=== PATIENT | male | born 1940 | race Caucasian/White ===

== ENCOUNTER → 2024-01-11 | Emergency (ER) | payer MEDICARE, OTHER ==
[~2024-01-11] VITALS: Ht 170.2 cm; Wt 65.0 kg
[~2024-01-11] MED LIST: ASPIRIN REGIMEN81 MG PO; CIPRO250 MG PO; CIPRO500 MG PO; CRESTOR40 MG PO; FINASTERIDE5 MG PO; FLOMAX0.4 MG PO; HYDROCODON-ACE1 EA10 PO; LEVOTHYROXINE50 MC1 PO; LEVOTHYROXINE50 MCG PO; METOPROLOL SUCC50 MG PO; MULTI VITAMIN1 EACH PO; NORVASC5 MG PO; ONDANSETRON ODT8 MG PO; PYRIDIUM200 MG PO; TAMSULOSIN HCL0.4 MG PO; TRAMADOL HCL50 MG PO; VITAMIN D350 MC3 PO; ZESTORETIC 10-1 EACH PO
--- OUTSIDE RECORDS SUMMARY | 2024-01-11 22:45 | XMS ---
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 Ajit has no Care Guidelines for this patient. [place] VISIT COUNT (12 MO.) 3 [facility] T[facility] NOTE: Visits indicate total known visits. ED/C VISIT TRACKING (12 MO.) 01/11/2024 22:[address] [facility] [place] TYPE: Emergency COMPLAINT: - CATHETER ISSUE 01/08/2024 15:30 [facility] [place] TYPE: Emergency COMPLAINT: - URINE ISSUE/POST OP DIAGNOSES: - residential (current) use of aspirin - Other halfway (current) drug therapy - Other specified disorders of bladder - Pure hypercholesterolemia, unspecified 12/06/2023 07:57 [facility] [place] TYPE: Emergency COMPLAINT: - ABDOMINAL PAIN DIAGNOSES: - Calculus of ureter - Unspecified abdominal pain INPATIENT VISIT TRACKING (12 MO.) No inpatient visits to display in this time frame [email or web address]
[2024-01-11 23:56] VITALS: BP 116/53
== END ==
LOC: ED 22:42
DX: T83.031A Leakage of indwelling urethral catheter, initial encounter (principal); Z79.899 Other long term (current) drug therapy; Z79.82 Long term (current) use of aspirin; Y73.8 Miscellaneous gastroenterology and urology devices associated with adverse incidents, not elsewhere classified; Y84.8 Other medical procedures as the cause of abnormal reaction of the patient, or of later complication, without mention of misadventure at the time of the procedure
CPT/HCPCS: 51798; 99283

== ENCOUNTER 2024-03-08 05:38 | Day surgery (SDC) | payer MEDICARE, OTHER ==
[2024-03-03 13:23] VITALS: BP 126/52
[~2024-03-08] VITALS: Ht 170.2 cm; Wt 62.3 kg
[~2024-03-08 05:38] MED LIST changes: +LACTATED RINGER'S 1,000 ML IV SCH
[2024-03-08 05:57] VITALS: BP 128/52
[2024-03-08] MEDS ORDERED: IBLOOD GLUCOSE TEST STRIP 1 EA TEST VI PRN (07:00)
[2024-03-08] MEDS ORDERED: CEFAZOLIN SODIUM 2 GM/20 ML SYR IV SCH (07:00)
[2024-03-08] MEDS ORDERED: LIDOCAINE HCL 1% 5 ML SDV INJ ONE (07:00)
[2024-03-08] MEDS ORDERED: iopamidoL 30 ML VIAL ONE (07:05)
[2024-03-08] MEDS ORDERED: fentaNYL citrate 100 MCG/2 ML VIAL ONE (07:06)
[2024-03-08] MEDS ORDERED: KETOROLAC TROMETHAMINE 30 MG/ML VIAL ONE (07:06)
[2024-03-08] MEDS ORDERED: DEXAMETHASONE SOD PHOS 4 MG/ML VIAL ONE (07:06)
[2024-03-08] MEDS ORDERED: ondansetron HCL 4 MG/2 ML VIAL ONE (07:06)
[2024-03-08] MEDS ORDERED: propofoL 200 MG/20 ML VIAL ONE (07:06)
[2024-03-08] MEDS ORDERED: LIDOCAINE HCL 2% 5 ML SDV ONE (07:08)
[2024-03-08] MEDS ORDERED: ondansetron HCL 4 MG/2 ML VIAL IV PRN (08:00)
[2024-03-08] MEDS ORDERED: OXYCODONE/APAP 5/325 TAB PO PRN (08:00)
[2024-03-08] MEDS ORDERED: HYDROmorphone HCL 1 MG/ML SYR IV PRN (08:00)
[2024-03-08] MEDS ORDERED: PHENAZOPYRIDINE HCL 95 MG TAB PO PRN (08:00)
--- NOTE | 2024-03-08 09:33 | NUR ---
03/08/24 0933 Chantale Fernandes 0914- PT PRESENTS TO PACU, SEMI DELANEY POSITION. LR INFUSING TO LFA IV. PT NON REACTIVE TO STIMULUS ON ARRIVAL. ON ROOM AIR, BREATHING EVEN AND NON LABORED. ABD SOFT, NON DISTENDED. STENT ATTACHED TO PENIS WITH STERI STRIPS. ALL MONITORS IN PLACE. 0922- PT REACTIVE TO STIMULUS, OPENS EYES BUT GOES BACK TO SLEEP. 0930- PT WAKES ON OWN, REORIENTED TO TIME AND PLACE. DENIES PAIN AND NAUSEA. PT PUT TOP DENTURE BACK IN AT THIS TIME. NO SIGNS OF DISTRESS.
[2024-03-08 09:48] VITALS: BP 116/58
--- NOTE | 2024-03-08 10:07 | NUR ---
LE 0945 PATIENT BACK TO ROOM 12. PATIENT ALERT AND ORIENTED. BREATHING EQUAL AND UNLABORED. OXYGEN SATURATIONS ABOVE 90% ON ROOM AIR. PATIENT DENIES PAIN OR BEING NAUSEATED. PATIENT STENT INTACT. PATIENT IVF INFUSING. SCD'S ON. CALL LIGHT WITHIN REACH NO FUTHER NEEDS. LE 1000 PATIENT GIVEN WATER AND JELLO. AT BEDSIDE.
[2024-03-08 10:46] VITALS: BP 107/50
[2024-03-08 11:39] VITALS: BP 120/60
--- NOTE | 2024-03-08 12:11 | NUR ---
LE 1135 PATIENT ALERT AND ORIENTED. BREATHING EQUAL AND UNLABORED. OXYGEN SATURATIONS ABOVE 90% ON ROOM AIR. PATIENT DENIES BEING IN PAIN OR BEING NAUSEATED. PATIENT HAS SMALL AMOUNT OF RED DRAINAGE. CHUX PAD PLACED UNDER PATIENT. IVF SALINE LOCKED. CALL LIGHT WITHIN REACH. NO FUTHER NEEDS. NO QUESTION.
[2024-03-08 12:45] VITALS: BP 116/50
--- NOTE | 2024-03-08 14:58 | NUR ---
LE 1225 PATIENT BLADDER SCANNED FOR 193. DR. ZIMMERMAN NOTIFIED. PATIENT TO STAY UNTIL PATIENT IS ABLE TO VOID AT THIS TIME. PATIENT ENCOURAGED MORE FLUIDS. PATIENT DENIES PAIN OR BEING NAUSEATED. CALL LIGHT WITHIN REACH NO FUTHER NEEDS.
--- NOTE | 2024-03-08 15:08 | NUR ---
LE 1345 PATIENT ALERT AND ORIENTED. BREATHING EQUAL AND UNLABORED. OXYGEN SATURATIONS ABOVE 90% ON ROOM AIR. PATIENT DENIES PAIN OR BEING NAUSEATED. PATIENT STENT IN PLACE. SMALL AMOUNT OF RED DRAINAGE AT SITE. LE 1405 PATIENT UNABLE TO VOID. PATIENT BLADDER SCANNED FOR [address] Z[address] ZIMMERMAN ORDERS PATIENT TO BE DISCHARGED AND TO COME BACK TO THE ER IF ANY PROBLEMS VOIDING AT HOME. PATIENT EDUCATED TO COME BACK TO ER IF UNABLE TO VOID. PATIENT AND UNDERSTANDING. NO QUESITIONS AT THIS TIME. PATIENT WHEELED OUT OF FACILITY NO FUTHER NEEDS.
--- NOTE | 2024-03-08 17:22 | NUR ---
DAYSI 336James CONTACTED PATIENT. PATIENT STILL UNABLE TO VOID. PATIENT EDUCATED ON THE IMPORTANCE OF VOIDING. PATIENT INSTRUCTED TO GO THE ER IF UNABLE TO VOID. PATIENT VERBALIZED UNDERSTANDING OF THIS. NO QUESITIONS AT THIS TIME.
[2024-03-10 18:02] LABS: CALCULI MASS 75 mg (())
== END 2024-03-08 14:25 | disposition home or self-care (01) ==
LOC: OPS 05:38 → DS 05:38 → OPS 07:30
PROVIDERS: ATTEND Urology
PROC: BT1DZZZ Fluoroscopy of Right Kidney, Ureter and Bladder (ICD-10-PCS; principal; 2024-03-08 07:30)
PROC: 0TC68ZZ Extirpation of Matter from Right Ureter, Via Natural or Artificial Opening Endoscopic (ICD-10-PCS; 2024-03-08 07:30)
DX: N20.1 Calculus of ureter (principal); E78.5 Hyperlipidemia, unspecified; I25.10 Atherosclerotic heart disease of native coronary artery without angina pectoris; I10 Essential (primary) hypertension; E78.00 Pure hypercholesterolemia, unspecified; E03.9 Hypothyroidism, unspecified; Z79.899 Other long term (current) drug therapy; Z95.1 Presence of aortocoronary bypass graft
CPT/HCPCS: 00918; 51702; 51798; 74018; 74450; 82365; 99283-25; C1769; C2617; J0690; J1100; J1885; J2001; J2405; J2704; J3010; J7121; Q9958

== ENCOUNTER 2024-03-26 20:41 | Observation (INO) | payer MEDICARE, OTHER ==
[~2024-03-26] VITALS: Ht 170.2 cm; Wt 58.0 kg
[~2024-03-26 20:41] MED LIST changes: -LACTATED RINGER'S 1,000 ML IV SCH
--- OUTSIDE RECORDS SUMMARY | 2024-03-26 20:48 | XMS ---
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 Ajit has no Care Guidelines for this patient. [place] VISIT COUNT (12 MO.) 5 [facility] T[facility] NOTE: Visits indicate total known visits. ED/[facility] VISIT TRACKING (12 MO.) 03/26/2024 20:[address] [facility] [place] TYPE: Emergency COMPLAINT: - LOW HEART RATE 03/08/2024 19:51 [facility] [place] TYPE: Emergency COMPLAINT: - URINE PROBLEM DIAGNOSES: - Other intermodal owner operator truck driver (current) drug therapy - Retention of urine, unspecified 01/11/2024 22:42 [facility] [place] TYPE: Emergency COMPLAINT: - CATHETER ISSUE DIAGNOSES: - Leakage of indwelling urethral catheter, initial encounter - buttermaker continuous churn (current) use of aspirin - Miscellaneous gastroenterology and urology devices associated with adverse incidents, not elsewhere classified - Other jail (current) drug therapy - Other medical procedures as the cause of abnormal reaction of the patient, or of later complication, without mention of misadventure at the time of the procedure 01/08/2024 15:30 [facility] [place] TYPE: Emergency COMPLAINT: - URINE ISSUE/POST OP DIAGNOSES: - residential (current) use of aspirin - Other intermodal owner operator truck driver (current) drug therapy - Other specified disorders of bladder - Pure hypercholesterolemia, unspecified 12/06/2023 07:57 [facility] [place] TYPE: Emergency COMPLAINT: - ABDOMINAL PAIN DIAGNOSES: - Calculus of ureter - Unspecified abdominal pain INPATIENT VISIT TRACKING (12 MO.) No inpatient visits to display in this time frame [id number]
[2024-03-26 20:58] LABS: HEMOGLOBIN 12.7 g/dL (12.0-18.0); RDW 14.4 (10.5-15.0)
[2024-03-26 21:04] LABS: BASOPHILS 0.6 % (0-2); EOSINOPHILS 0.9 % (0-6); HEMATOCRIT 36.4 % (35.0-50.0); LYMPHOCYTES 20.1 % (24-44); MCH 34.3 (27-36); MCHC 34.9 g/dl (30-36); MCV 98.3 fl (81-99); MONOCYTES 12.9 % (0-12); NEUTROPHILS 65.5 % (39-80); PLATELET COUNT 116 K/uL (140-440)
[2024-03-26 21:14] LABS: ALBUMIN 3.1 g/dL (3.4-5.0); ALBUMIN/GLOBULIN RATIO 0.86 (1.1-2.4); ANION GAP 11.8 (7-21); BILIRUBIN, TOTAL 0.5 ng/dL (0.2-1.0); BUN/CREATININE RATIO 16.36 (6.0-28.6); CALCIUM 8.5 mg/dL (8.5-10.1); CREATININE, SERUM 1.1 mg/dL (0.70-1.30); MAGNESIUM 2.1 mg/dL (1.8-2.4); POTASSIUM 3.8 mmol/L (3.5-5.1); PROTEIN, TOTAL 6.7 g/dL (6.4-8.2)
[2024-03-26 22:59] LABS: BILIRUBIN, URINE NEGATIVE (negative); BLOOD/HGB, URINE NEGATIVE (Negative); KETONE, URINE TRACE (Negative); LEUK ESTERASE, URINE NEGATIVE (negative); NITRITE, URINE NEGATIVE (negative); PH, URINE 5.5 (5-7)
[2024-03-26 23:09] LABS: BACTERIA, URINE RARE /hpf (negative); CASTS, URINE NONE SEEN \\lpf; COLLECTION TYPE, URINE CLEAN CATCH; CRYSTALS, URINE NONE SEEN (0-1+); EPITHELIAL CELLS, URINE NONE SEEN /lpf (0-1+); RED BLOOD CELLS, URINE 0-1 /hpf (0-5); REFLEX CULTURE, URINE No (No)
[2024-03-27] VITALS (20 sets, daily range): BP systolic 108–147; BP diastolic 50–71
[2024-03-27] MEDS ORDERED: ATROPINE SULFATE 1 MG/10 ML SYR IV SCH (00:45)
--- NOTE | 2024-03-27 04:00 | NUR ---
NURSE PERFORMED ASSESSMENT AND OBTAINED PATIENT'S VITAL SIGNS. PATIENT A&OX4. PATIENT DENIES FEELING DIZZY. NURSE PROVIDED STANDBY ASSIST PATIENT GOT UP AND OUT OF BED TO VOID. PATIENT PREFERRED TO USE URINAL AND STAND TO VOID. PATIENT RETURNED TO BED. DENIES HAVING ANY PAIN OR DISCOMFORT. PATIENT'S HEART RATE WAS IN THE 30'S WHEN ASLEEP. PATIENT WAS EASILY AWAKENED. PATIENT'S HEART RATE IN THE 50'S WHEN AWAKE. PATIENT'S HEART RATE IN THE 60'S WHEN UP AND OUT OF BED TO VOID. PATIENT'S GAIT STEADY WHEN OUT OF BED. PATIENT DID NOT HAVE ANY DIFFICULTY GETTING OUT OF BED OR RETURNING TO BED AFTER USING URINAL. CALL LIGHT AND BEDSIDE TABLE WITHIN REACH.
[2024-03-27 07:13] LABS: BASOPHILS 0.6 % (0-2); EOSINOPHILS 0.8 % (0-6); HEMATOCRIT 33.6 % (35.0-50.0); HEMOGLOBIN 11.7 g/dL (12.0-18.0); LYMPHOCYTES 31.5 % (24-44); MCH 34.1 (27-36); MCHC 34.7 g/dl (30-36); MCV 98.1 fl (81-99); MONOCYTES 13.8 % (0-12); NEUTROPHILS 53.3 % (39-80); PLATELET COUNT 101 K/uL (140-440); RBC 3.42 M/ul (4.3-5.7)
[2024-03-27 07:27] LABS: ALBUMIN 2.6 g/dL (3.4-5.0); ALBUMIN/GLOBULIN RATIO 0.84 (1.1-2.4); ANION GAP 12.6 (7-21); BILIRUBIN, TOTAL 0.5 ng/dL (0.2-1.0); BUN/CREATININE RATIO 15.15 (6.0-28.6); CREATININE, SERUM 0.99 mg/dL (0.70-1.30); POTASSIUM 3.6 mmol/L (3.5-5.1); PROTEIN, TOTAL 5.7 g/dL (6.4-8.2)
--- NOTE | 2024-03-27 07:30 | NUR ---
REPORT RECEIVED. PATIENT IS RESTING IN BED. DENIES PROBLEMS.
--- NOTE | 2024-03-27 08:00 | NUR ---
ASSESSMENT DONE. DENIES PAIN. IS W/O C/O DIZZINESS. 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 TALKED WITH PATIENT ABOUT POC, INDICATES UNDERSTANDING. SITTING UP INBED FOR BREAKFAST.
[2024-03-27] MEDS ORDERED: POTASSIUM CHLORIDE 10 MEQ TABCR PO ONE (09:00)
[2024-03-27] MEDS ORDERED: LEVOTHYROXINE SODIUM 50 MCG TAB PO SCH (09:00)
[2024-03-27] MEDS ORDERED: FINASTERIDE 5 MG TAB PO SCH (09:00)
--- NOTE | 2024-03-27 09:10 | NUR ---
TOOK BREAKFAST FAIR. PATIENT IN ROOM. PATIENT W/O C/O.
--- NOTE | 2024-03-27 10:30 | NUR ---
RESTING WITH TV ON.
--- NOTE | 2024-03-27 11:00 | NUR ---
UP OOB TO AMBULATE IN [facility]. RN WITH PATIENT. HR AT REST 50, WITH AMBULATION HR 77. DENIES DIZZINESS. STABLE ON FEET. BACK TO BED W/O INCIDENT. SEVERAL VISITORS IN ROOM.
[2024-03-27] MEDS ORDERED: PHARMACY RENAL DOSE ADJUSTMENT 1 DOSE MISC PO SCH (12:00)
--- NOTE | 2024-03-27 12:00 | NUR ---
ASSESSMENT UNCHANGED. ECHO BEING DONE AT BESIDE.
--- NOTE | 2024-03-27 14:10 | NUR ---
NO CHANGES. RESTFUL.
--- NOTE | 2024-03-27 15:13 | EKG ---
[facility] [address] [facility] [place] [address] Signed Sinus bradycardia with premature ventricular complexes Abnormal ECG When compared with ECG of 31-DEC-2023 15:46, ventricular rate has decreased Confirmed by Arnold Fletcher MD ([id number]) on 03/27/2024 3:13:07 PM Electronically Signed By: ARNOLD FLETCHER MD 03/27/24 1513 PATIENT NAME: MICHELLELANNY BRENT Electrocardiogram DATE OF : 38 PHYSICIAN: ARNOLD FLETCHER MD REPORT #: [id number] REPORT IS CONFIDENTIAL AND NOT TO BE RELEASED WITHOUT AUTHORIZATION
--- NOTE | 2024-03-27 15:15 | EKG ---
[facility] [address] [facility] [place], [place] [address] Signed Sinus bradycardia with first degree av block Abnormal ECG When compared with ECG of 26-MAR-2024 20:45, (Unconfirmed) No significant change was found Confirmed by Lito Fletcher MD ([id number]) on 03/27/2024 3:15:24 PM Electronically Signed By: LITO FLETCHER MD 03/27/24 1515 PATIENT NAME: LANNY MARTINEZ Electrocardiogram DATE OF : 38 PHYSICIAN: LITO FLETCHER MD REPORT #: [id number] REPORT IS CONFIDENTIAL AND NOT TO BE RELEASED WITHOUT AUTHORIZATION
--- NOTE | 2024-03-27 15:16 | EKG ---
[facility] [address] [facility] [place], [place] [address] Signed Sinus bradycardia with marked sinus arrhythmia with 1st degree AV block Otherwise normal ECG When compared with ECG of 26-MAR-2024 22:16, (Unconfirmed) No significant change was found Confirmed by Arnold Fletcher MD ([id number]) on 03/27/2024 3:16:08 PM Electronically Signed By: ARNOLD FLETCHER MD 03/27/24 1516 PATIENT NAME: MICHELLELANNY BRENT Electrocardiogram DATE OF : 38 PHYSICIAN: ARNOLD FLETCHER MD REPORT #: [id number] REPORT IS CONFIDENTIAL AND NOT TO BE RELEASED WITHOUT AUTHORIZATION
--- NOTE | 2024-03-27 16:30 | NUR ---
UP TO BR TO VOID AND HAVE SMALL STOOL. HR TO MID 70'S. REMAINS STABLE ON FEET, DENIES DIZZINESS.
--- NOTE | 2024-03-27 18:36 | NUR ---
NAPPING. NO DISTRESS NOTED.
--- NOTE | 2024-03-27 20:00 | NUR ---
PATIENT IN BED WATCHING TV. PATIENT A&OX4. PATIENT DENIES HAVING CHEST PAIN OR DISCOMFORT. PATIENT DENIES FEELING DIZZY. NURSE PERFORMS ASSESSMENT AND OBTAINS VITAL SIGNS. PATIENT AFEBRILE. PATIENT GETS UP AND OUT OF BED WITHOUT ANY DIFFICULTY. PATIENT VOIDS IN URINAL. PATIENT RETURNS TO BED WITHOUT ANY DIFFICULTY. NURSE STANDS BY TO ASSIST. PATIENT'S HEART RATE 50'S WHILE RESTING IN BED. NURSE OBSERVED PATIENT'S HEART RATE IN THE 60'S WITH ACTIVITY. CALL LIGHT AND BELONGINGS WITHIN REACH. NURSE SETS THE BED ALARM ON BEFORE LEAVING PATIENT.
[2024-03-27] MEDS ORDERED: TAMSULOSIN HCL 0.4 MG CAP PO SCH (21:00)
[2024-03-28] VITALS (11 sets, daily range): BP systolic 100–150; BP diastolic 51–74
--- NOTE | 2024-03-28 | NUR ---
PATIENT IN BED SLEEPING. PATIENT EASILY AWAKENED. NURSE COMPLETED VITAL SIGNS AND ASSESSMENT. PATIENT DENIED HAVING ANY PAIN OR FEELING DIZZY. PATIENT REMAINS BRADYCARDIC WITH 1ST DEGREE AV BLOCK. PATIENT DENIES CHEST PAIN OR DISCOMFORT. PATIENT AFEBRILE. 20G IV IN LEFT AC FLUSHED, PATENT, SALINE LOCKED. BED ALARM ON. CALL LIGHT WITHIN REACH. NURSE REMINDED PATIENT TO USE CALL LIGHT FOR ASSISTANCE.
--- NOTE | 2024-03-28 02:30 | NUR ---
NURSE PERFORMING ROUNDS. PATIENT'S HEART RATE IN THE 30'S. PATIENT AWAKE AND ALERT; LOOKING UP AT ALARMING MONITOR. PATIENT ADVISED NURSE THAT HE WOULD LIKE TO GET OUT OF BED TO USE URINAL. NURSE TURNED ALARM OFF. PATIENT GOT OUT OF BED UNASSISTED. NURSE STANDBY ASSIST. NURSE OBSERVED PATIENT TO BE STEADY ON HIS FEET. PATIENT DENIED FEELING DIZZY OR CHEST DISCOMFORT. PATIENT VOIDED IN URINAL. PATIENT RETURNED TO BED. NURSE TURNED THE BED ALARM ON. CALL LIGHT AND BEDSIDE TABLE WITHIN PATIENT'S REACH. NURSE MET PATIENT'S NEEDS. PATIENT DENIED HAVING PAIN OR ANY DISCOMFORT. NURSE OBSERVED PATIENT'S HEART RATE INCREASE TO 60'S WITH ACTIVITY.
--- NOTE | 2024-03-28 04:00 | NUR ---
PATIENT IN BED SLEEPING; PATIENT EASILY AWAKENED. PATIENT ALERT AND ORIENTEDX4. PATIENT DENIES FEELING CHEST PAIN OR ANY DISCOMFORT. PATIENT'S HEART RATE 30-40; BRADYCARDIC RHYTHM WITH 1ST DEGREE BLOCK. NURSE PERFOMS ASSESSMENT AND OBTAINS VITAL SIGNS. PATIENT AFEBRILE. IV INTACT AND PATENT, IV DRESSING CLEAN, DRY & INTACT. IV SALINE LOCKED. CALL LIGHT AND PATIENT'S BELONGINGS WITHIN REACH.
[2024-03-28 05:37] LABS: BASOPHILS 0.5 % (0-2); EOSINOPHILS 3.1 % (0-6); HEMATOCRIT 33.1 % (35.0-50.0); HEMOGLOBIN 11.6 g/dL (12.0-18.0); LYMPHOCYTES 29.7 % (24-44); MCH 34.3 (27-36); MCHC 34.9 g/dl (30-36); MCV 98.2 fl (81-99); MONOCYTES 10.9 % (0-12); NEUTROPHILS 55.8 % (39-80); PLATELET COUNT 103 K/uL (140-440); RBC 3.37 M/ul (4.3-5.7); RDW 14.3 (10.5-15.0)
[2024-03-28 05:57] LABS: ALBUMIN 2.5 g/dL (3.4-5.0); ALBUMIN/GLOBULIN RATIO 0.81 (1.1-2.4); ANION GAP 11.1 (7-21); BILIRUBIN, TOTAL 0.4 ng/dL (0.2-1.0); BUN/CREATININE RATIO 17.77 (6.0-28.6); CALCIUM 8.2 mg/dL (8.5-10.1); CREATININE, SERUM 0.9 mg/dL (0.70-1.30); MAGNESIUM 1.9 mg/dL (1.8-2.4); POTASSIUM 4.1 mmol/L (3.5-5.1); PROTEIN, TOTAL 5.6 g/dL (6.4-8.2)
--- NOTE | 2024-03-28 07:30 | NUR ---
REPORT RECEIVED FROM PREVIOUS SHIFT. PATIENT IS RESTING IN BED. DENIES PAIN.
--- NOTE | 2024-03-28 08:00 | NUR ---
ASSESSMENT DONE. STATES HE FEELS OKAY. C/O SLIGHT CONGESTION IN [place]ER [place]. PATIENT SAID HE FELT THIS WAY WHEN HE WAS AT HOME. NO FEVER, CHILLS, COUGH. NO CHANGES IN HEART RHYTHM. REMAINS IN 1 DEGREE HR WITH PERIODS OF 2 DEGREE TYPE 1, OCC PVC. DENIES DIZZINESS. SAID HE SLEPT WELL. DENIES PAIN. SITTING UP IN BED FOR BREAKFAST.
--- NOTE | 2024-03-28 09:00 | NUR ---
SITTING UP IN CHAIR. DENIES DIZZINESS WITH MOVEMENT. STABLE ON FEET. IN ROOM.
--- NOTE | 2024-03-28 09:06 | NUR ---
THIS SRT INTO CHECK ON PT AFTER BREAKFAST. PT IN CHAIR, STILL VISITING WITH . CLEARED TRAY, ENSURED PERSONAL ITEMS AND CALL LIGHT WITHIN REACH. PT STATES HE IS LIKING SITTING IN THE CHAIR AND WOULD LIKE TO SIT THERE LONGER. PT DENIES ANY FURTHER NEEDS AT THIS TIME.
--- NOTE | 2024-03-28 10:20 | NUR ---
BACK TO BED. NO CHANGES.
--- NOTE | 2024-03-28 12:00 | NUR ---
ASSESSMENT UNCHANGED. PATIENT IS W/O C/O. IN ROOM. NO WORD AT THIS TIME FROM OTHER FACILITY REGARDING POSSIBLE TRANFER.
--- NOTE | 2024-03-28 13:19 | NUR ---
RESTING IN BED. IS W/O C/O. IS IN ROOM.
--- NOTE | 2024-03-28 15:00 | NUR ---
UP TO SHOWER.
--- NOTE | 2024-03-28 15:20 | NUR ---
TOLERATED WELL. HR IN THE 50'S TO MID 60'S WITH EXERTION. DENIES SHORTNESS OF BREATH. DR. SCALES HERE TO SEE PATIENT, TOLD PATIENT AND PATIENT HE WILL BE TRANSFERRED TO [facility] FOR EVALUATION FOR PACEMAKE BY CENTRAL STERILE TECH. TRANSFER TEAM FOR [facility] UPDATED.
== END 2024-03-28 16:40 | disposition short-term general hospital (02) ==
LOC: ED 20:41 → CCU 23:24
PROVIDERS: Emergency Medicine; ADMIT Student in an Organized Health Care Education/Training Program; ATTEND Student in an Organized Health Care Education/Training Program
DX: R00.1 Bradycardia, unspecified (principal); R55 Syncope and collapse; I11.9 Hypertensive heart disease without heart failure; I25.10 Atherosclerotic heart disease of native coronary artery without angina pectoris; E03.9 Hypothyroidism, unspecified; N40.0 Benign prostatic hyperplasia without lower urinary tract symptoms; Z95.1 Presence of aortocoronary bypass graft; Z79.890 Hormone replacement therapy; Z79.899 Other long term (current) drug therapy
CPT/HCPCS: 36415; 51798; 70450; 71045; 80053; 81001; 83735; 84484; 85025; 93005; 93010; 93306; 99285-25; A9270; G0378